=== PATIENT | female | born 1950 | race Caucasian/White ===

== ENCOUNTER 2019-02-05 11:50 | Day surgery (SDC) | payer MEDICARE ==
[2019-02-04 12:33] VITALS: BMI 23.3
[2019-02-05] MEDS ORDERED: CEFAZOLIN 1 GM VIAL ONE (13:09)
[2019-02-05] MEDS ORDERED: Sodium Chloride 0.9% 100 ML ONE (13:10)
[2019-02-05] MEDS ORDERED: Fentanyl 100 MCG/2 ML VIAL ONE ×2 (14:02→14:52)
[2019-02-05] MEDS ORDERED: Bupivacaine HCl 0.5%/Epinephrine 1:200,000/PF 30 ml Vial ONE (14:36)
[2019-02-05] MEDS ORDERED: Lidocaine 1% PF 5 ML VIAL ONE (14:38)
[2019-02-05] MEDS ORDERED: PROPOFOL 200 MG/20 ML VIAL ONE (14:38)
[2019-02-05] MEDS ORDERED: Midazolam HCl 2 mg/2 ml Vial ONE (14:52)
[2019-02-05] MEDS ORDERED: Propofol 500 MG/50 ML VIAL ONE (14:55)
[2019-02-05] MEDS ORDERED: HYDROcodone/Acetaminophen 5/325 mg Tablet ONE (16:47)
--- NOTE | 2019-02-06 07:23 | RAD ---
XR Thoracic Spine 1 View HISTORY: Dorsal column stimulator placement. COMPARISON: None. FINDINGS: C-arm films show placement of a dorsal column stimulator the tip overlies the T5-6 level. IMPRESSION: Placement of a dorsal column stimulator.
--- NOTE | 2019-02-06 12:23 | OP ---
DATE OF PROCEDURE: 02/05/2019 PREOPERATIVE DIAGNOSES: 1. Chronic pain syndrome. 2. Lumbar radiculopathy. POSTOPERATIVE DIAGNOSES: 1. Chronic pain syndrome. 2. Lumbar radiculopathy. PROCEDURES PERFORMED: 1. Spinal cord stimulator generator implant x1. 2. Spinal cord stimulator lead implant x2. 3. Programing. 4. Fluoroscopy. ESTIMATED BLOOD LOSS: 5 mL. DESCRIPTION OF PROCEDURE: The patient was taken to the procedure room and placed prone on the procedure room table. A time-out was performed. The back was prepped with ChloraPrep and sterile drapes were applied. Using fluoroscopy, we located the interspace of T12 to L1. We used a paramedian technique and anesthetized the skin. At the needle entry points, we made an incision using a 10 blade scalpel and blunt dissected down to fascia. We then inserted a 14-gauge needle in a paramedian technique into the interspinous ligament of T12 to L1. We advanced it using loss of resistance to air until we achieved access to the epidural space in midline position and this was negative for aspiration for heme or CSF. We inserted an 8-contact lead through the needle and up the midline dorsal epidural space to the top of T7. We then placed a contralateral lead on the contralateral side using the exact same technique. This was threaded up the epidural space, midline dorsal using continuous fluoroscopy to the top of T7 to place parallel leads. Testing was performed with the patient awake. The patient noted paresthesia in all pain areas. We then anesthetized the skin over the left buttock. We made an incision and blunt dissected this down to Skip's fascia. A pocket was made by blunt dissecting this superiorly and inferiorly. A tunneling device was used to make a tunnel between the 2 incision points. Anchors were placed over the leads and clicked down to affix them to the leads. These were tied down to the fascia with 2-0 silk suture x2 for each lead. The leads were then threaded through the tunneling device and brought to the battery pocket. These were connected to the battery and we used a torque wrench to tighten the leads into place. The Impedances were checked, which were all good. We then placed the battery inside the pocket. We approximated both fascia layers with 2-0 Vicryl suture in simple interrupted fashion. We then used holli for the skin. A sterile dressing was placed on top and the patient was taken to recovery with no apparent complications noted at this time. Job ID: [id number]
== END 2019-02-05 15:30 | disposition home or self-care (01) ==
LOC: SDC 11:50
PROVIDERS: ATTEND Specialist
PROC: 0JH70DZ Insertion of Multiple Array Stimulator Generator into Back Subcutaneous Tissue and Fascia, Open Approach (ICD-10-PCS; principal; 2019-02-05)
PROC: 00HU3MZ Insertion of Neurostimulator Lead into Spinal Canal, Percutaneous Approach (ICD-10-PCS; 2019-02-05)
DX: G89.4 Chronic pain syndrome (principal); M47.26 Other spondylosis with radiculopathy, lumbar region; M19.011 Primary osteoarthritis, right shoulder; E03.9 Hypothyroidism, unspecified; E78.00 Pure hypercholesterolemia, unspecified; Z79.1 Long term (current) use of non-steroidal anti-inflammatories (NSAID); Z79.82 Long term (current) use of aspirin; Z79.83 Long term (current) use of bisphosphonates; Z79.899 Other long term (current) drug therapy; Z98.890 Other specified postprocedural states
CPT/HCPCS: 63650 ×2; 63685; 72020; 76000; C1767; C1778; J0670; J0690; J2001; J2250; J2704; J3010; J3490

== ENCOUNTER 2019-08-06 12:56 | Day surgery (SDC) | payer MEDICARE ==
[2019-08-05 10:28] VITALS: BMI 22.4
[2019-08-06] MEDS ORDERED: Morphine 4 MG/ML VIAL ONE (14:07)
[2019-08-06] MEDS ORDERED: Sodium Chloride 0.9% 100 ML ONE (14:08)
[2019-08-06] MEDS ORDERED: CEFAZOLIN 1 GM VIAL ONE (14:08)
[2019-08-06] MEDS ORDERED: Bupivacaine HCl 0.5%/Epinephrine 1:200,000/PF 30 ml Vial ONE (14:29)
--- NOTE | 2019-08-06 20:06 | OP ---
DATE OF PROCEDURE: 08/06/2019 PREOPERATIVE DIAGNOSES: 1. Post-laminectomy syndrome. 2. Chronic pain syndrome. 3. Lumbar radiculopathy. POSTOPERATIVE DIAGNOSES: 1. Post-laminectomy syndrome. 2. Chronic pain syndrome. 3. Lumbar radiculopathy. PROCEDURE PERFORMED: Spinal cord stimulator battery exchange. SPECIMEN REMOVED: Spinal cord stimulator battery, intact, sent to [facility] for evaluation. ESTIMATED BLOOD LOSS: Minimal. DESCRIPTION OF PROCEDURE: The patient was taken to the procedure room, placed prone on the procedure room table. A time-out was performed. Sterile drapes were applied. The skin above the battery site was anesthetized with 0.5% Marcaine with epinephrine. A 15 blade scalpel was used to make an incision and this was blunt dissected down to fascia and the battery pocket was opened. The battery was taken out. A torque wrench was used to loosen the leads from the battery. The leads were inserted into the new battery and torqued down, impedances were checked. The battery was placed back in the pocket easily. The fascial layer was approximated with 2-0 Vicryl suture in simple interrupted fashion. The skin was approximated with holli, 4 x 4, which were sterile were placed on top and these were secured with Medipore tape. The patient was taken to the Day Stay under stable condition. Job ID: [id number]
[2019-08-07] MEDS ORDERED: Fentanyl 100 MCG/2 ML VIAL ONE (06:24)
== END 2019-08-06 16:10 | disposition home or self-care (01) ==
LOC: SDC 12:56
PROVIDERS: ATTEND Specialist
PROC: 0JH70DZ Insertion of Multiple Array Stimulator Generator into Back Subcutaneous Tissue and Fascia, Open Approach (ICD-10-PCS; principal; 2019-08-06)
DX: M96.1 Postlaminectomy syndrome, not elsewhere classified (principal); G89.4 Chronic pain syndrome; M54.12 Radiculopathy, cervical region; M54.16 Radiculopathy, lumbar region; M47.817 Spondylosis without myelopathy or radiculopathy, lumbosacral region; M19.011 Primary osteoarthritis, right shoulder; E03.9 Hypothyroidism, unspecified; E78.00 Pure hypercholesterolemia, unspecified; Z79.1 Long term (current) use of non-steroidal anti-inflammatories (NSAID); Z79.82 Long term (current) use of aspirin; Z79.83 Long term (current) use of bisphosphonates; Z79.899 Other long term (current) drug therapy; Z88.2 Allergy status to sulfonamides
CPT/HCPCS: C1767; J0670; J0690; J2270; J3010; J3490